=== PATIENT | female | born 1955 | race Caucasian/White ===

== ENCOUNTER 2023-06-09 06:32 | Inpatient (IN) | payer MEDICARE, OTHER, SELFPAY ==
--- NOTE | 2023-05-17 13:16 | CM ---
Patient is scheduled for lumbar spine surgery on 06/09/23. Spoke with patient prior to surgery via telephone. Introduced role of the Orthopedic Navigator. Patient reports that she lives with her and daughter in a two story home. There is one
step to enter and a flight of steps to the second floor. There is a powder room on the first floor. She currently functions independently. She has a rolling walker, cane, raised toilet seat, shower seat, grabber (all from her prior THR surgery),
back brace and cpap. She has never had VN services. PCP is Mar Mathews.
Discussed orthopedic program, post surgical plans and tentative plan for patient to return home when directed by surgeon. Patient is in agreement with tentative plan and will have support from her and daughter when she goes home.
Plan: Orthopedic Navigator will remain available to assist with the care of patient and will reassess discharge needs after surgery.
[2023-05-24 13:29] VITALS: BMI 31.5
[2023-05-24 14:14] VITALS: BMI 31.5
[2023-05-24 14:19] LABS: Hematocrit 36.2 % (37.0-47.0); Hemoglobin 11.7 g/dL (12.0-16.0); Mean Corp Hgb Conc. 32.3 g/dL (33.0-37.0); Mean Corpuscular Hgb 26.8 pg (27.0-31.0); Mean Corpuscular Volume 82.8 fL (81.0-99.0); Mean Platelet Volume 11.4 fL (7.4-10.4); Platelet Count 272 10^3/uL (130-400); Red Blood Cell Count 4.37 10^6/uL (4.20-5.40); Red Cell Dist. Width 13.8 % (11.5-14.5); White Blood Cell Count 8.5 10^3/uL (4.8-10.8)
[2023-05-24 15:26] LABS: ALT (SGPT) 28 U/L (0-35); AST (SGOT) 36 U/L (14-36); Albumin 4.5 g/dl (3.5-5.0); Alkaline Phosphatase 58 U/L (38-126); Blood Urea Nitrogen 21 mg/dl (7-17); Calcium 9.6 mg/dl (8.4-10.2); Carbon Dioxide 29 mmol/L (22-30); Chloride 97 mmol/L (98-107); Estimated Creatinine Clearance 58 ml/min; Glucose 118 mg/dl (70-99); Potassium 3.9 mmol/L (3.5-5.1); Sodium 136 mmol/L (135-145); Total Bilirubin 0.3 mg/dl (0.2-1.3); Total Protein 7.3 g/dl (6.3-8.2); eGFR > 60.00
[2023-06-09] VITALS (24 sets, daily range): BP systolic 95–143; BP diastolic 36–120; BMI 31.5
[2023-06-09] MEDS: LYRICA 150 MG PO (10:08)
[2023-06-09] MEDS: SKELAXIN 800 MG PO (10:08)
[2023-06-09] MEDS: NORMOSOL-R 1000 IV ×3 (10:08→22:55)
[2023-06-09] MEDS: TYLENOL 1000 MG PO ×3 (10:08→22:55)
[2023-06-09] MEDS: VANCOCIN 300 MG IV (10:23)
[2023-06-09] MEDS: VANCOCIN 300 ML IV (10:23)
--- NOTE | 2023-06-09 11:59 | W.PN.UPDATE ---
Update Note
Progress Note Update
Lumbar stenosis/spondylolisthesis s/p L4-L5 Lami/PSF w/ Celestin 06/09/23
DVT prophylaxis - b/l SCDs/TEDS
Asthma and AMANDA, CPAP compliant - monitor O2
- IS
- Resume CPAP HS
- Resume inhaler prn
GERD - resume PPI therapy
H/o iron deficiency anemia s/p previous Injectafer - pre-op hgb 11.7 - H&H in AM
Hyperlipidemia
Nonobstructive coronary artery disease by catheterization 2007
Osteoarthritis
Osteopenia
Depression
Anxiety
Insomnia
Obesity, BMI 31.5
Remote history of tobacco abuse
[2023-06-09] MEDS: DILAUDID 0.5 MG IV ×3 (13:45→15:10)
[2023-06-09] MEDS: DILAUDID 0.25 MG IV ×3 (14:45→16:09)
[2023-06-09] MEDS: ULTRAM 50 MG PO ×2 (17:29→23:01)
[2023-06-09] MEDS: PROTONIX 40 MG PO (17:38)
[2023-06-09] MEDS: ZOFRAN 4 MG IV (18:48)
--- NOTE | 2023-06-09 20:00 | TRANSFER ---
Pt arrived from PACU at 19:40, post L4-L5 Spondylolisthesis & stenosis spinal fusion instrument & reduction surgery, done by Dr. Gary Celestin. Pt rec'd a dose of Vanco in PACU. Pt drowsy, a bit nauseous, pain 5 (acceptable level per pt), AOx3.
Surgical site dressing clean, dry and intact. Pt bed in low position, call light, phone, bedside table within reach, latex and fall risk bracelets on and outside door.
[2023-06-09] MEDS: SENOKOT 17.1999999999999993 MG PO (20:50)
[2023-06-09] MEDS: COLACE 100 MG PO (20:50)
[2023-06-09] MEDS: LIPITOR 20 MG PO (21:31)
[2023-06-09] MEDS: AMBIEN 10 MG PO (21:31)
[2023-06-09] MEDS: LYRICA 75 MG PO (21:31)
[2023-06-09] MEDS: VANCOCIN 200 IV (21:37)
[2023-06-09] MEDS: TYLENOL PO (22:55)
[2023-06-09] MEDS: ZOLOFT 50 MG PO (23:46)
[2023-06-09] MEDS: FLOMAX 0.400000000000000022 MG PO (23:46)
--- NOTE | 2023-06-10 01:30 | PTCARENOTE ---
PT [place] like she needed to urinate, but only went a little. Pt took Flomax 0.4mg at 23:46. Her b/p was 113/65 when given, later she was able to void, but incontinent
[2023-06-10 01:44] VITALS: BMI 31.6
[2023-06-10 03:47] VITALS: BP 135/78
[2023-06-10] MEDS: ULTRAM 50 MG PO ×2 (04:19→11:50)
[2023-06-10] MEDS: TYLENOL 1000 MG PO ×2 (04:21→11:49)
[2023-06-10 06:07] LABS: Hematocrit 34.2 % (37.0-47.0)
[2023-06-10 06:37] VITALS: BP 106/55
[2023-06-10 06:39] LABS: Blood Urea Nitrogen 19 mg/dl (7-17); Calcium 8.7 mg/dl (8.4-10.2); Carbon Dioxide 26 mmol/L (22-30); Chloride 100 mmol/L (98-107); Estimated Creatinine Clearance 75 ml/min; Glucose 105 mg/dl (70-99); Potassium 3.8 mmol/L (3.5-5.1); Sodium 137 mmol/L (135-145); eGFR > 60.00
--- NOTE | 2023-06-10 08:35 | CM ---
Addendum entered by Iliana Lau 06/10/23 12:07:
Patient did well in therapy. She has no concerns about going home and has updated her family.
Original Note:
Reviewed chart and held rounds with PT, OT and RN. Patient had planned lumbar spine surgery with Dr. Celestin on 06/08. Met with patient at bedside. Confirmed information previously obtained for assessment and discussed discharge plans. Patient continues
to plan to return home at discharge. She will have support from her and daughter when she goes home. Reviewed that she will work with PT/OT this morning and that discharge needs will depend on her functional status. However, no needs
currently identified.
Patient has a cane, rolling walker, raised toilet seat and shower seat at home.
Patient will use [facility] for discharge prescriptions.
[2023-06-10] MEDS: PROTONIX 40 MG PO (08:37)
[2023-06-10] MEDS: COLACE 100 MG PO (08:38)
[2023-06-10] MEDS: SENOKOT 17.1999999999999993 MG PO (08:38)
[2023-06-10 09:35] VITALS: BP 111/51; O2SAT 95
[2023-06-10 10:25] VITALS: BP 138/56; O2SAT 97
--- NOTE | 2023-06-10 11:27 | W.PN.ORTHO ---
Today's Communication / Plan
-
D/c today since clinically stable, did well w/ PT and OT.
Assessment
.
Distal Motor Intact: Yes
Dressing:
Clean, dry and intact.
Assessment:
Lumbar stenosis/spondylolisthesis s/p L4-L5 Lami/PSF w/ Celestin 06/09/23
DVT prophylaxis - b/l SCDs/TEDS
Mild urinary/bowel incontinence post-op - likely related to GA as pt reportedly experienced this before after a previous surgery (not spinal related)
- Sx expected to improve fully within next 24-48 hours
- Should incontinence worsen, pt advised to contact surgeon's office for reassessment
Asthma and AMANDA, CPAP compliant - O2 stable on RA
- IS
- Resumed CPAP HS
- Resumed inhaler prn
GERD - resumed PPI therapy
H/o iron deficiency anemia s/p previous Injectafer - pre-op hgb 11.7 - H&H stable at 11.0 POD 1
Hyperlipidemia
Nonobstructive coronary artery disease by catheterization 2007
Osteoarthritis
Osteopenia
Depression
Anxiety
Insomnia
Obesity, BMI 31.5
Remote history of tobacco abuse
Plan
.
Surgery / Date: L4-L5 Lami/PSF w/ Celestin 06/09/23
DVT Prophylaxis: Other (b/l SCDs/TEDs )
Activity:
Out of bed.
PT/OT
Discharge Plan: Home
Subjective
.
.:
Patient resting comfortably in her bed this AM.
Incontinence overnight - likely related to GA.
Denies any other new significant complaints.
Low back pain well tolerated w/ minimal pain meds.
Eager for potential d/c later today.
Vital Signs and Labs
.
Vital Signs and Labs:
Lab Results
06/10/23 05:38
06/10/23 05:38
Temp Pulse Resp BP Pulse Ox
97.6 F 86 14 106/55 98
06/10/23 06:37 06/10/23 06:37 06/10/23 06:37 06/10/23 06:37 06/10/23 06:37
Physical Exam
-
HEENT: No pallor, cyanosis, or jaundice. Throat clear.
NECK: Supple. No JVD.
RESPIRATORY: Lungs clear to auscultation.
CVS: S1, S2 normal. RRR.�
ABDOMEN: Soft, non-tender. No distension. Obese.
EXTREMITIES: Strength equal, no calf pain with palpation/dorsiflexion. Calves soft.
FURNACE CONVERTER: AOx3. No focal deficits. machine compositor grossly intact
--- NOTE | 2023-06-10 11:41 | W.DS.TRANS ---
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
-
Discharge Instructions:
Discharge Diagnosis/Procedures Lumbar stenosis/spondylolisthesis s/p L4-L5
Laminectomy and Posterior Fusion with Dr Celestin /
12/22
Diet Regular
Activity As tolerated
Additional Activity No heavy lifting >10 lbs
Driving Restrictions Not until seen by your Dr
Bathing Restrictions Ok to shower in 4 days
Instructions:
Stand-Alone Forms: [facility] D/C [facility].
Changes to Home Medications: Yes
Discharge Medications:
DC Medications w/original date entered in [facility]
albuterol sulfate 90 mcg/actuation aerosol inhaler 2 puff inhalation R Q4HPRN PRN shortness of breath 11/19/16
omeprazole 20 mg capsule,delayed release 20 mg PO HS GERD 11/19/16
sertraline 50 mg tablet 50 mg PO HS Mental Health/Anxiety 11/19/16
eszopiclone 3 mg tablet (Lunesta) 3 mg PO HS Sleep 12/21/18
atorvastatin 20 mg tablet 20 mg PO HS High Cholesterol 05/19/23
Saccharomyces boulardii 250 mg capsule (Florastor) 250 mg PO BID #10 caps 06/10/23
acetaminophen 500 mg tablet (Tylenol Extra Strength) 1,000 mg (2 x 500 mg) PO Q6H #60 tabs 06/10/23
clindamycin HCl 300 mg capsule 300 mg PO Q6H #20 caps 06/10/23
docusate sodium 100 mg capsule 100 mg PO BID #30 caps 06/10/23
ondansetron HCl 4 mg tablet 4 mg PO Q6H PRN nausea and vomiting #30 tabs 06/10/23
pregabalin 75 mg capsule (Lyrica) 75 mg PO BID #15 caps 06/10/23
sennosides 8.6 mg tablet (Senna Laxative) 17.2 mg (2 x 8.6 mg) PO BID #30 tabs 06/10/23
tramadol 50 mg tablet 50 - 100 mg (1 - 2 x 50 mg) PO Q6H PRN moderate-severe pain #30 tabs 06/10/23
Home Medication Changes
Saccharomyces boulardii 250 mg capsule (Florastor) 250 mg PO BID #10 caps 06/10/23
acetaminophen 500 mg tablet (Tylenol Extra Strength) 1,000 mg (2 x 500 mg) PO Q6H #60 tabs 06/10/23
clindamycin HCl 300 mg capsule 300 mg PO Q6H #20 caps 06/10/23
docusate sodium 100 mg capsule 100 mg PO BID #30 caps 06/10/23
ondansetron HCl 4 mg tablet 4 mg PO Q6H PRN nausea and vomiting #30 tabs 06/10/23
pregabalin 75 mg capsule (Lyrica) 75 mg PO BID #15 caps 06/10/23
sennosides 8.6 mg tablet (Senna Laxative) 17.2 mg (2 x 8.6 mg) PO BID #30 tabs 06/10/23
tramadol 50 mg tablet 50 - 100 mg (1 - 2 x 50 mg) PO Q6H PRN moderate-severe pain #30 tabs 06/10/23
Pending Results: No
[2023-06-10] MEDS: LYRICA 75 MG PO (11:50)
[2023-06-10 12:00] VITALS: BP 125/48
== END 2023-06-10 12:42 | disposition home or self-care (01) | DRG 460 ==
LOC: 2 SOUTH 06:32
PROVIDERS: Physician Assistant; ADMITTING PHYSICIAN Orthopaedic Surgery Orthopaedic Surgery of the Spine; FAMILY PHYSICIAN Internal Medicine
PROC: 0SG00K1 Fusion of Lumbar Vertebral Joint with Nonautologous Tissue Substitute, Posterior Approach, Posterior Column, Open Approach (ICD-10-PCS; 2023-06-09)
DX: M48.062 Spinal stenosis, lumbar region with neurogenic claudication (principal); M43.16 Spondylolisthesis, lumbar region; M19.90 Unspecified osteoarthritis, unspecified site; E66.9 Obesity, unspecified; E78.5 Hyperlipidemia, unspecified; I25.10 Atherosclerotic heart disease of native coronary artery without angina pectoris; M85.80 Other specified disorders of bone density and structure, unspecified site; G47.33 Obstructive sleep apnea (adult) (pediatric); J45.909 Unspecified asthma, uncomplicated; K21.9 Gastro-esophageal reflux disease without esophagitis; F32.A Depression, unspecified; F41.9 Anxiety disorder, unspecified; R15.9 Full incontinence of feces; D50.9 Iron deficiency anemia, unspecified; R32 Unspecified urinary incontinence; G47.00 Insomnia, unspecified; Z96.643 Presence of artificial hip joint, bilateral; Z68.31 Body mass index [BMI] 31.0-31.9, adult; Z87.891 Personal history of nicotine dependence; Z88.0 Allergy status to penicillin; Z88.1 Allergy status to other antibiotic agents; Z88.2 Allergy status to sulfonamides
CPT/HCPCS: 36415; 72100; 76000; 80048; 80053; 85014; 85018; 85027; 86850; 86900; 86901; 87070; 97116; 97162; 97166; 97530; 97535; C1713; C1776

== ENCOUNTER → 2023-11-03 13:20 | Outpatient (REF) | payer MEDICARE, OTHER, SELFPAY | LOC: PAVMRI 13:20 | PROVIDERS: ATTENDING PHYSICIAN Orthopaedic Surgery Orthopaedic Surgery of the Spine; FAMILY PHYSICIAN Internal Medicine | DX: M48.062 Spinal stenosis, lumbar region with neurogenic claudication (principal) | CPT/HCPCS: 72158; A9575 ==

== ENCOUNTER → 2024-04-25 13:35 | Outpatient (REF) | payer MEDICARE, OTHER, SELFPAY | LOC: WDC 13:35 | PROVIDERS: ATTENDING PHYSICIAN Internal Medicine | DX: Z12.31 Encounter for screening mammogram for malignant neoplasm of breast (principal) | CPT/HCPCS: 77063; 77067 ==